=== PATIENT | female | born 1965 | race Caucasian/White ===

== ENCOUNTER 2017-04-22 16:31 | Emergency (ER) | payer OTHER ==
[2017-04-22 17:01] LABS: BASOPHIL 0.2 % (0-2); EOSINOPHIL 0.9 % (0-5); HGB 15.3 g/dl (12.5-16.0); LYMPHOCYTE 33.7 % (15-48); MCH 30.4 pg (25.0-31.0); MCV 89.5 fL (78.0-100.0); MPV 10.9 fL (6.0-9.5); NEUTROPHIL 56.2 % (41-80); PLT 212 K/uL (150-400); RBC 5.03 M/uL (4.20-5.40); WBC 5.3 K/uL (4.0-10.5)
[2017-04-22 17:09] LABS: INR 1.01 (0.9-1.2); PROTHROMBIN TIME 12.9 SECONDS (11.7-14.0); PTT 23.2 SECONDS (23.2-31.4)
[2017-04-22 17:16] LABS: ALBUMIN 4.8 g/dL (3.5-5.0); BILIRUBIN - TOTAL 0.4 mg/dL (0.1-1.0); GLOBULIN (CALCULATION) 3.1 g/dL (2.2-4.2); MAGNESIUM 2.19 mg/dL (1.40-2.10); POTASSIUM 3.7 mmol/L (3.5-5.1); TOTAL PROTEIN 7.9 g/dL (6.4-8.3)
[2017-04-22 17:19] LABS: CKMB 1.32 ng/mL (0.97-4.94); MYOGLOBIN 21 ng/mL (26-65); PRO-BNP 24 pg/mL (0-125); TROPONIN T < 0.010 ng/mL
== END 2017-04-22 20:01 | disposition home or self-care (01) ==
LOC: FER 16:31
PROVIDERS: Emergency Medicine
DX: I20.9 Angina pectoris, unspecified (principal); I10 Essential (primary) hypertension; E78.5 Hyperlipidemia, unspecified; E11.9 Type 2 diabetes mellitus without complications; Z88.0 Allergy status to penicillin; Z88.2 Allergy status to sulfonamides; Z88.8 Allergy status to other drugs, medicaments and biological substances
CPT/HCPCS: 36415; 71010; 80053; 82550; 82553; 83735; 83874; 83880; 84484; 85025; 85610; 85730; 93005